=== PATIENT | female | born 1945 | race Caucasian/White ===

== ENCOUNTER 2017-11-10 02:48 | Inpatient (IN) | payer OTHER, MEDICARE ==
[~2017-11-10] VITALS: Ht 160 cm; Wt 71.2 kg
[~2017-11-10 02:48] MED LIST: ACTONEL150 M1 PO; AMLODIPINE BESY10 M1 PO; ASPIRIN EC81 M1 PO; ATORVASTATIN CA40 M1 PO; BENICAR HCT 401 EAC1 PO; METOPROLOL TAR100 M1 PO; MULTIPLE VITAM1 EACH; VITAMIN D2000 UNI1 PO
--- NOTE | 2017-11-10 09:06 | Admission Core Measures ---
Acute Coronary Syndrome (CM) ACS Core Measures Acute Coronary Syndrome Diagnosis No Congestive Heart Failure (NEW) CHF Core Measures Congestive Heart Failure Diagnosis No Cerebrovascular Accident CVA Core Measures CVA/TIA Diagnosis No Venous Thromboembolism VTE Core Denia (View Protocol) VTE Risk Factors Surgery No Mechanical VTE Prophylaxis d/t N/A MechProphylax Ordered No VTE Pharm Prophylaxis d/t NA PharmProphylax ordered Problem List As ranked by this Provider includes Assessment & Plan 1. Unilateral primary osteoarthritis, left hip
--- NOTE | 2017-11-10 09:08 | Surg Short-stay <48hrs Dis Sum ---
Visit Information Visit Dates Admission Date: 11/10/17 Discharge Date: 11/11/17 Surgical Short Stay DC Summary Admission Diagnosis: Left hip osteoarthritis Final Diagnosis: Same Procedure(s): Left total hip arthroplasty Summary/Significant Findings: Patient tolerated the procedure well. Postoperatively she was tolerating regular diet, voiding spontaneously, pain was well managed, and she was ambulate him with physical therapy using a rolling walker and was cleared for discharge. Condition at Discharge: Good Discharge Disposition: home health services Discharge instructions provided to patient/family: Yes Post discharge follow-up plan: Patient is to follow-up with Dr. Kiran in 6 weeks. She was given instructions to call sooner with any questions or concerns
--- NOTE | 2017-11-10 09:13 | Patient Discharge Instructions ---
Discharge Instructions General Discharge Information You were seen/treated for: Left hip osteoarthritis You had these procedures: Left total hip arthroplasty Watch for these problems: Fever over 100.4 Redness and swelling around wound Drainage from wound Numbness and tingling in left lower extremity Chest pain or shortness of breath No bath, but you may shower: Yes Other wound care: Daily dry dressing change Keep incision clean and dry Special Instructions: Take Eliquis 2.5mg twice daily for 7 days until 11/17/17. Then ok to resume taking normal dose of Eliquis as previously prescribed on 11/18/17. Diet Continue normal diet: Yes Activity Activity Self Limited: Yes Activity Limited to: Weight bear as tolerated (with walker) Acute Coronary Syndrome Inclusion Criteria At DC or during hospital stay patient has or had the following: ACS DIAGNOSIS No Discharge Core Measures Meds if any: Prescribed or Continued at Discharge Meds if any: NOT Prescribed or Continued at Discharge Congestive Heart Failure Inclusion Criteria At DC or during hospital stay patient has or had the following: CHF DIAGNOSIS No Discharge Core Measures Meds if any: Prescribed or Continued at Discharge Meds if any: NOT Prescribed or Continued at Discharge Cerebrovascular accident Inclusion Criteria At DC or during hospital stay patient has or had the following: CVA/TIA Diagnosis No Discharge Core Measures Meds if any: Prescribed or Continued at Discharge Meds if any: NOT Prescribed or Continued at Discharge Venous thromboembolism Inclusion Criteria VTE Diagnosis No VTE Type NONE VTE Confirmed by (Test) NONE Discharge Core Measures - Per Current guidelines, there needs to be overlap - treatment for the first 5 days of Warfarin therapy. - If discharged on Warfarin prior to 5 days of - overlap therapy, the patient will need to be - assessed for post discharge needs including - *Post discharge parental anticoagulation - *Warfarin and/or parental anticoagulation education - *Follow up date to check INR post discharge At least 5 days overlap therapy as Inpatient No Meds if any: Prescribed or Continued at Discharge Note: Overlap Therapy is Warfarin and Anticoagulant Meds if any: NOT Prescribed or Continued at Discharge
[2017-11-10] MEDS ORDERED: COLACE100 M1 PO (09:40)
[2017-11-10] MEDS ORDERED: DILAUDID2 M1 PO (09:40)
[2017-11-10] MEDS ORDERED: ELIQUIS2.5 M1 PO (09:40)
[2017-11-10] MEDS ORDERED: MIRALAX17 G1 PO (09:40)
[2017-11-10] MEDS ORDERED: KLONOPIN1 M1 PO (11:04)
[2017-11-10] MEDS ORDERED: VITAMIN D31000 UNI1 PO (11:05)
[2017-11-10] MEDS ORDERED: LIPITOR10 M1 PO (11:05)
[2017-11-10] MEDS ORDERED: METAMUCIL FIBE3.4 GM (11:06)
--- NOTE | 2017-11-10 11:38 | RADIOLOGY REPORT ---
EXAMINATION: XR HIP, LEFT CLINICAL INFORMATION: Left total hip replacement. COMPARISON: None. TECHNIQUE: Portable AP and crosstable lateral views of the left hip. FINDINGS: The left total hip arthroplasty appears well seated in near-anatomic alignment. There is air in the joint and soft tissues. IMPRESSION: Intact-appearing left total hip arthroplasty. Expected postoperative changes.
--- NOTE | 2017-11-10 13:37 | PN- Orthopedic ---
Subjective Subjective: Postop check: Mild complains of left hip pain, no other complaints. Patient doing well postoperatively. Recovering without complications thus far. Objective Vital Signs and I&Os Intake & Output 11/10 1600 11/10 0811/10 0000 11/09 0811/09 0000 Intake Total Output Total Balance Patient 155 lb Weight Vital signs stable, afebrile Physical Exam: Well-developed well-nourished no apparent distress. HEENT: Atraumatic, extraocular motion intact Neck: Supple, no lymphadenopathy Respiratory: No respiratory distress Extremities: No edema Left lower extremity hip dressing in place, Dressing clean dry and intact Mild thigh swelling No signs of infection. No shortening or rotation Hip range of motion is limited and without unexpected pain Neurovascularly intact distally Bilateral calves are supple, nontender. Neuro: Alert and oriented x3 Psych: Mood affect normal, normal memory normal judgment. Skin: Warm and dry, no rash on exposed skin Assessment/Plan Assessment/Plan Postop day #0 status post left total hip arthroplasty anterior approach Perioperative antibiotics. Pain medication as needed. Out of bed Physical therapy, weightbearing as tolerated IV fluids Regular diet Follow a.m. labs Eliquis for DVT prophylaxis ALPS for DVT prophylaxis Regular home meds Dressing change postop day 2 Anticipate discharge home tomorrow with [facility] services Core Measures Venous Thromboembolism VTE Risk Factors Surgery No Mechanical VTE Prophylaxis d/t N/A MechProphylax Ordered No VTE Pharm Prophylaxis d/t NA PharmProphylax ordered
[2017-11-10 14:30] VITALS: BP 92/60
--- NOTE | 2017-11-10 15:34 | Operative Report ---
Operative/Inv Procedure Report Surgery Date: 11/10/17 Name of Procedure: Left total hip replacement Pre-Operative Diagnosis: Primary left hip DJD Post-Operative Diagnosis: Same Estimated Blood Loss: 250 Surgeon/Shipping Clerk Crating: Benjamin Kiran MD Anesthesia: block Operative/Procedure Note Note: Description of Procedure: The patient was taken to the operating room and positively identified. After induction of spinal anesthesia and administration of appropriate pre-operative antibiotics, the patient was positioned supine on the operating room table and all bony prominences were well padded. After performing a surgical timeout, the left lower extremity was prepped and draped in the usual sterile fashion. A direct anterior approach was made to the left hip. The incision was carried sharply through superficial soft tissues to the level of the fascia. Meticulous hemostasis was maintained with Bovie electocautery. The fascia over the tensor fascia paco muscle was opened sharply and the interval between the TFL and the sartorius was entered bluntly taking care to stay lateral to the lateral femoral cutaneous nerve. Retractors were placed around the femoral neck and the pericapsular fat was identified. The ascending branches of the lateral femoral circumflex vessels were identified and carefully coagulated. The pericapsular fat and anterior capsule were then resected. A napkin ring osteotomy was performed and the femoral head was removed without difficulty. Attention was then turned to the acetabulum. After appropriate placement of retractors, the acetabulum was exposed. Soft tissue was cleaned from the acetabular margin and notch. Overhanging osteophytes were removed and the teardrop was exposed. The acetabulum was then sequentially reamed to accept a 54 mm Derek Tritanium hemispherical solid shell. This was impacted into place in the appropriate position and fitted with a 36 mm Trident X3 zero degree polyethylene insert. Attention was then turned to the femur. After performing the appropriate ligament releases, the proximal femur was exposed. It was then sequentially broached to accept a size #4 Derek Accolade 2 stem. This was trialed for leg length and stability. The trial component was removed and the final component was impacted into place. The trunnion was carefully cleaned and fit with a 36 mm, +0 Biolox delta ceramic femoral head. The hip was reduced and put through a full range of motion and found to be stable. The articular space was then irrigated with sterile saline. The periarticular soft tissues were infilitrated with Marcaine. The fascial layer was closed with interrupted #1 vicryl suture and the skin was re-approximated with interrupted 2 -0 vicryl. The skin was closed with a running 3-0 V-Lock suture. Steri-strips and a sterile dressing were applied. The patient was awakened and taken to the recovery room in satisfactory condition.
[2017-11-10 16:30] VITALS: BP 126/80
[2017-11-10 18:30] VITALS: BP 112/60
[2017-11-10 20:30] VITALS: BP 102/62
[2017-11-11 00:03] VITALS: BP 124/60
[2017-11-11 04:01] VITALS: BP 120/64
--- NOTE | 2017-11-11 07:40 | PN- Orthopedic ---
See Addendum Subjective Subjective: Pt.kortney. States had significant pain last night. She did not sleep well due to "IV pump beeping" Worried about her who was diagnosed with cancer. Worried about going home since not quite comfortable or mobile to function indepedently Ambulated with walker and assisstance to bathroom last night. Objective Vital Signs and I&Os Vital Signs Date Time Temp Pulse Resp B/P B/P Pulse O2 O2 Flow FiO2 Mean Ox Delivery Rate 11/11 0401 97.8 71 18 120/64 96 Room Air 11/11 0003 98.0 69 18 124/60 97 Room Air 11/10 2030 98.4 70 18 102/62 93 Room Air 11/10 1830 97.7 81 18 112/60 98 Room Air 11/10 1630 97.5 70 20 126/80 99 Room Air 11/10 1600 Room Air 11/10 1430 97.8 80 20 92/60 Intake & Output 11/11 0800 11/11 0000 11/10 1600 11/10 0800 11/10 0000 11/09 1600 Intake Total 700 475 420 Output Total 900 1100 600 Balance -200 -625 -180 Intake, IV 600 375 300 Intake, Oral 100 100 120 Number 0 Bowel Movements Output, Urine 900 1100 600 Patient 157 lb 155 lb Weight Weight Reported by Patient Measurement Method Alert, oriented, no distress. HEENT unremarkable Lungs clear bilat. Heart regular Abdomen soft, non tender, nondistended. Left Hip with mild to moderate swelling and surrounding bruising. Dressing intact, dry,clean. Neurovascularly intact.Limited ROM at hip, but as expected.LE well pefused. A Assessment/Plan Assessment/Plan s/p LTHA for primary DJD POD#1 Stable hemodynamically Pain issue; she does not wish for morphine.Continue PO Dilaudid. I will add a dose of Toradol. Tylenol IV timed out. I will addone more dose. Cont. PT/ mobilization. Monitor L hip wound/ swelling. Follow labs today. Hep lock IVF. Dressing change tomorrow. Core Measures Venous Thromboembolism VTE Risk Factors Surgery No Mechanical VTE Prophylaxis d/t N/A MechProphylax Ordered No VTE Pharm Prophylaxis d/t NA PharmProphylax ordered
[2017-11-11 08:31] LABS: ABSOLUTE BASOPHIL COUNT 0 /CUMM (0.0-0.2); ABSOLUTE EOSINOPHIL COUNT 0 /CUMM (0.0-0.7); ABSOLUTE GRANULOCYTE CT 5.8 /CUMM (1.4-6.5); ABSOLUTE LYMPH COUNT 1.2 /CUMM (1.2-3.4); ABSOLUTE MONOCYTE COUNT 0.9 /CUMM (0.10-0.60); BASOPHIL % 0.3 % (0.0-2.0); EOSINOPHIL % 0.1 % (0-5); GRANULOCYTE % 73.4 % (42.2-75.2); HEMATOCRIT 34.6 % (37-47); MEAN CORPUSCULAR HGB 30.8 PG (27.0-31.0); MEAN CORPUSCULAR HGB CONC 33.5 G/DL (33.0-37.0); MEAN CORPUSCULAR VOLUME 91.7 FL (81.0-99.0); MEAN PLATELET VOLUME 8.8 FL (7.4-10.4); PLATELET COUNT 238 /CUMM (130-400); RBC DISTRIBUTION WIDTH 13.4 % (11.5-14.5); RED BLOOD CELL CT 3.77 /CUMM (4.20-5.40); WHITE BLOOD CELL COUNT 7.9 /CUMM (4.8-10.8)
[2017-11-11 08:56] VITALS: BP 122/65
[2017-11-11 12:51] VITALS: BP 110/65
[2017-11-11 14:50] VITALS: BP 120/75
[2017-11-11] MEDS ORDERED: COLACE100 M1 PO (15:21)
[2017-11-11] MEDS ORDERED: MIRALAX17 G1 PO (15:21)
[2017-11-11] MEDS ORDERED: DILAUDID2 M1 PO (15:21)
[2017-11-11] MEDS ORDERED: ELIQUIS2.5 M1 PO (15:21)
== END 2017-11-11 16:25 | disposition home health service (06) | DRG 470 ==
LOC: SDA 02:48 → 2NA 02:48 → ENRESERV 11:13 → ENTRNSPT 12:34 → EDTRNSPT 12:52 → EDTRNSPTSTS 12:52 → 2NA 13:03 → CMPTRNSPT 13:15 → ENTRNSPT 11-11 16:18 → CMPTRNSPT 11-11 16:21 → 2NA 11-11 16:25
PROVIDERS: Physician Assistant Surgical
PROC: 0SRB04A Replacement of Left Hip Joint with Ceramic on Polyethylene Synthetic Substitute, Uncemented, Open Approach (ICD-10-PCS; principal; 2017-11-10)
DX: M16.12 Unilateral primary osteoarthritis, left hip (principal); R42 Dizziness and giddiness; Z79.01 Long term (current) use of anticoagulants; M54.9 Dorsalgia, unspecified; F10.21 Alcohol dependence, in remission; E78.5 Hyperlipidemia, unspecified; Z86.73 Personal history of transient ischemic attack (TIA), and cerebral infarction without residual deficits; I48.0 Paroxysmal atrial fibrillation; Z88.1 Allergy status to other antibiotic agents
CPT/HCPCS: 2NAP; 36592; 73502-LT; 82436; 97116-GO; 97161-GP; 97530-GO; J0131; J0690; J0735; J2405; J7042